=== PATIENT | female | born 1985 | race American Indian/Alaskan Native ===

== ENCOUNTER 2018-05-07 12:24 | Emergency (ER) | payer OTHER ==
--- NOTE | 2018-05-07 13:03 | Emergency Department Report ---
Blank Doc - Documentation Documentation: 33 y o female presents with work related injury, states head pain, states htch door fell on her head,yesterday states loc. upt CT head
[2018-05-07 14:08] LABS: HCG Qualitative,Urine Negative (Negative)
--- NOTE | 2018-05-07 14:41 | Cat Scan Report ---
CT HEAD WITHOUT CONTRAST: HISTORY: Head pain from injury. TECHNIQUE: Sequential 2.5mm CT images. COMPARISON: none. FINDINGS: Cerebral Parenchyma: Within normal limits. Cerebellum: Within normal limits. Brainstem: Within normal limits. Ventricles: Normal. Sella: Normal. Extra-axial spaces: Normal. Basal Cisterns: Normal. Intracranial Hemorrhage: None. Midline Shift: None. Calvarium: Normal. Sinuses: Normal. Mastoid Air Cells: Normal. Visualized Orbits: Normal. IMPRESSION: Cranial CT scan within normal limits.
[2018-05-07] MEDS ORDERED: TORADOL IM ONE (15:35)
--- NOTE | 2018-05-07 15:44 | Emergency Department Report ---
ED Head Trauma HPI - General Chief complaint: Head Injury Stated complaint: HEAD/NECK INJURY Time Seen by Provider: 05/07/18 12:59 Source: patient Mode of arrival: Ambulatory Limitations: No Limitations - History of Present Illness Initial comments: 33-year-old female with a past medical history diabetes the hospital for persistent headache since yesterday. Patient was climbing the ladder to her attic and got hit with the latch. No LOC reported. Latch also struck her left arm. She has continued to have persistent headache. She attempted to go to [place] yesterday but the wait was too long therefore she left prior to evaluation. She went to urgent care today and was advised to the hospital for CT scan and evaluation. She denies nausea, vomiting, blurred vision. Complains of left sided neck pain extending into shoulder and posterior thoracic as well as left arm pain at area of contusion. Patient denies of current weakness or numbness. Pain is 8/10 in intensity. - Related Data Previous Rx's Medication Instructions Recorded Last Taken Type Ibuprofen [Motrin] 800 mg PO Q8HR PRN #30 tablet 05/07/18 Unknown Rx Metaxalone [Skelaxin] 800 mg PO TID PRN #20 tablet 05/07/18 Unknown Rx traMADol [Ultram 50 MG tab] 50 mg PO Q6HR PRN #20 tablet 05/07/18 Unknown Rx Allergies/Adverse reactions: Allergies Allergy/AdvReac Type Severity Reaction Status Date / Time No Known Allergies Allergy Verified 05/07/18 12:57 ED Review of Systems ROS: Stated complaint: HEAD/NECK INJURY Other details as noted in HPI Comment: All other systems reviewed and negative ED Past Medical Hx - Past Medical History Hx Diabetes: Yes - Social History Smoking Status: Never Smoker Substance Use Type: None - Medications Home Medications: Home Medications Medication Instructions Recorded Confirmed Last Taken Type Ibuprofen [Motrin] 800 mg PO Q8HR PRN #30 tablet 05/07/18 Unknown Rx Metaxalone [Skelaxin] 800 mg PO TID PRN #20 tablet 05/07/18 Unknown Rx traMADol [Ultram 50 MG tab] 50 mg PO Q6HR PRN #20 tablet 05/07/18 Unknown Rx ED Physical Exam - General Limitations: No Limitations - Other Other exam information: General: No limitations, patient is alert in no acute distress Head exam: Atraumatic, normocephalic Eyes exam: Normal appearance, pupils equal reactive to light, extraocular movements intact ENT: Moist mucous membrane, normal oropharynx Neck exam: Normal inspection, full range of motion, no meningismus, no midline tenderness. Tenderness to the left trapezius extending to the upper thigh and shoulder Respiratory exam: Clear to auscultation bilateral, no wheezes, rales, crackles Cardiovascular: Normal rate and rhythm, normal heart sounds Abdomen: Soft, nondistended, and nontender, with normal bowel sounds, no rebound, or guarding Extremity: Full range of motion normal inspection no deformity, contusion noted to the left forearm with tenderness. Neurologic: Alert, oriented x3, cranial nerves intact, no motor or sensory deficit Psychiatric: normal affect, normal mood Skin: Warm, dry, intact ED Course Vital Signs 05/07/18 12:57 Temperature 98.1 F Pulse Rate 86 Respiratory 16 Rate Blood Pressure 152/95 O2 Sat by Pulse 100 Oximetry - Lab Data Lab Results 05/07/18 Range/Units 13:39 Urine HCG, Qual Negative (Negative) - Radiology Data Radiology results: report reviewed CT head: No acute findings - Medical Decision Making CT head unremarkable. Patient has a left trapezius muscle pain without midline tenderness. CT cervical spine ordered but declined. Patient has not had any weakness or neurologic deficit. Given Toradol in the ED. Discharged with follow-up. Blood pressure mildly elevated. Outpatient reevaluation advised. She plans on following back up with urgent care on Thursday - Differential Diagnosis concussion, contusion, muscle strain, fracture Critical Care Time: No Critical care attestation.: If time is entered above; I have spent that time in minutes in the direct care of this critically ill patient, excluding procedure time. ED Disposition Clinical Impression: Head injury, Headache, post-traumatic, acute, Strain of left trapezius muscle, Elevated blood pressure reading Disposition: - TO HOME OR SELFCARE Is pt being admited?: No Does the pt Need Aspirin: No Condition: Stable Instructions: Cervical Sprain (ED), Minor Head Injury (ED), How to Take a Blood Pressure (ED) Additional Instructions: Take the medication as prescribed. Follow up with your doctor or the clinic/doctor provided. Return if symptoms worsen as indicated by your discharge instructions Prescriptions: Ibuprofen [Motrin] 800 mg PO Q8HR PRN #30 tablet PRN Reason: Pain, Moderate (4-6) Metaxalone [Skelaxin] 800 mg PO TID PRN #20 tablet PRN Reason: Muscle Spasm traMADol [Ultram 50 MG tab] 50 mg PO Q6HR PRN #20 tablet PRN Reason: Pain Referrals: SWETA SHERIDAN [Primary Care Provider] - 3-5 Days Time of Disposition: 15:46
[2018-05-07 16:21] VITALS: BP 142/104
== END 2018-05-07 16:22 | disposition home or self-care (01) ==
LOC: ED 12:24
DX: S16.1XXA Strain of muscle, fascia and tendon at neck level, initial encounter (principal); S09.90XA Unspecified injury of head, initial encounter; E11.9 Type 2 diabetes mellitus without complications; R03.0 Elevated blood-pressure reading, without diagnosis of hypertension; G44.319 Acute post-traumatic headache, not intractable; W22.8XXA Striking against or struck by other objects, initial encounter; Y93.39 Activity, other involving climbing, rappelling and jumping off; Y92.89 Other specified places as the place of occurrence of the external cause; Y99.8 Other external cause status
CPT/HCPCS: 70450; 81025; 96372; 99284; J1885

== ENCOUNTER 2019-01-13 12:15 | Emergency (ER) | payer OTHER ==
--- NOTE | 2019-01-13 13:00 | Event Note ---
ED Screening Note Date of service: 01/13/19 Time: 12:53 ED Screening Note: Patient c/o headache with elevated BP without dx of HTN. Blurred vision and dizziness. Denies fever or chills. BP elevated in the past with strong family history. Pain lt side of head and radiating to neck and lt ear/ LMP 2 weeks ago. Nausea without vomiting. No head injury. GEN: BP elevated. non toxic Head: NL exam. Neck- NTTP . supple. Pain to Lt side with ROM Elevated blood pressure- no dx of HTN Headache This initial assessment/diagnostic orders/clinical plan/treatment(s) is/are subject to change based on patients health status, clinical progression and re- assessment by fellow clinical providers in the ED. Further treatment and workup at subsequent clinical providers discretion. Patient/guardian urged not to elope from the ED as their condition may be serious if not clinically assessed and managed. Initial orders include: CT head, cbc BMP
[2019-01-13 13:43] LABS: Basophils # (Auto) 0.1 K/mm3 (0.0-0.1); Basophils % (Auto) 1.8 % (0.0-1.8); Eosinophils % (Auto) 0.5 % (0.0-4.3); Hemoglobin 9.7 gm/dl (10.1-14.3); Lymphocytes # (Auto) 2.2 K/mm3 (1.2-5.4); Lymphocytes % (Auto) 28.6 % (13.4-35.0); Mean Corpuscular HGB Conc 30 % (30-34); Mean Corpuscular Volume 70 fl (79-97); Monocytes # (Auto) 0.5 K/mm3 (0.0-0.8); Platelet Count 378 K/mm3 (140-440); Red Blood Count 4.59 M/mm3 (3.65-5.03); Red Cell Distribution Width 17.3 % (13.2-15.2)
[2019-01-13 13:55] LABS: BUN/Creatinine Ratio 12; Blood Urea Nitrogen 6 mg/dL (7-17); Calcium 9.5 mg/dL (8.4-10.2); Hemolysis Index 4
[2019-01-13] MEDS ORDERED: KETOROLAC 30 MG/1 ML INJ IV ONE (14:48)
[2019-01-13] MEDS ORDERED: SODIUM CHLORIDE 0.9% 1000 ML 1,000 ML IV ONE (14:49)
--- NOTE | 2019-01-13 15:07 | Cat Scan Report ---
CT head/brain wo con INDICATION / CLINICAL INFORMATION: 33 years Female; New onset GILBERT with nausea, blurred vision. TECHNIQUE: Routine CT head without contrast. All CT scans at this location are performed using CT dos e reduction for ALARA by means of automated exposure control. COMPARISON: The study is compared to the previous CT of 05/07/2018. FINDINGS: BRAIN / INTRACRANIAL CONTENTS: The brain appears to demonstrate appropriate attenuation without signi ficant interval change from the previous CT. The ventricular system remains appropriate in size and c onfiguration. There is no clear CT evidence of acute intracranial hemorrhage or significant mass effe ct. ORBITS: No significant abnormality of visualized orbits. SINUSES / MASTOIDS: No significant abnormality the visualized paranasal sinuses or mastoid air cells. CRANIOCERVICAL JUNCTION: No significant abnormality. ADDITIONAL FINDINGS: None. IMPRESSION: 1. There is no CT evidence of acute intracranial process. Signer Name: Craig Vargas MD Signed: 01/13/2019 3:03 PM Workstation Name: [id number]
--- NOTE | 2019-01-13 15:13 | Emergency Department Report ---
<SWAPNA KNOWLES - Last Filed: 01/13/19 15:52> ED Headache HPI - General Chief Complaint: Headache Stated Complaint: HBP/MIGRAINE Time Seen by Provider: 01/13/19 12:53 - History of Present Illness Initial Comments: 33-year-old -[place] female patient complains of headache for 2 days and elevated blood pressure today. She admits to history of migraines and rates her some pain at 89/10 in severity. She admits to nausea and photophobia and states this feels like one of her migraines. She denies any head trauma, vision changes, numbness/tingling/also sensation, worse headache of her life/thun derclap headache, dizziness, or syncope. Patient states she tried ibuprofen 800 without success and decided to check her blood pressure and noticed it was elevated at 170/116. She denies ever being diagnosed with hypertension, however states her blood pressure has been elevated at her last few doctor's visits. She also states her mother and father have hypertension Allergies/Adverse Reactions: Allergies No Known Allergies Allergy (Verified 05/07/18 12:57) Home Medications: Ambulatory Orders Ibuprofen [Motrin] 800 mg PO Q8HR PRN #30 tablet 05/07/18 Metaxalone [Skelaxin] 800 mg PO TID PRN #20 tablet 05/07/18 traMADoL [Ultram 50 MG tab] 50 mg PO Q6HR PRN #20 tablet 05/07/18 ED Review of Systems Comment: All other systems reviewed and negative Eyes: as per HPI Neurological: as per HPI ED Past Medical Hx - Past Medical History Previous Medical History?: Yes Hx Diabetes: Yes - Surgical History Past Surgical History?: No - Social History Smoking Status: Never Smoker - Medications Home Medications: Home Medications Medication Instructions Recorded Confirmed Last Taken Type Ibuprofen [Motrin] 800 mg PO Q8HR PRN #30 tablet 05/07/18 Unknown Rx Metaxalone [Skelaxin] 800 mg PO TID PRN #20 tablet 05/07/18 Unknown Rx traMADoL [Ultram 50 MG tab] 50 mg PO Q6HR PRN #20 tablet 05/07/18 Unknown Rx ED Physical Exam - General Limitations: No Limitations General appearance: alert, in no apparent distress - Head Head exam: Present: atraumatic, normocephalic - Eye Eye exam: Present: normal appearance, PERRL, EOMI. Absent: scleral icterus - ENT ENT exam: Present: mucous membranes moist - Respiratory Respiratory exam: Present: normal lung sounds bilaterally. Absent: respiratory distress - Cardiovascular Cardiovascular Exam: Present: regular rate, normal rhythm. Absent: systolic murmur, diastolic murmur, rubs, gallop - GI/Abdominal GI/Abdominal exam: Present: soft. Absent: distended, tenderness - Extremities Exam Extremities exam: Present: normal inspection. Absent: calf tenderness (leg swelling/edema noted) - Neurological Exam Neurological exam: Present: alert, oriented X3, CN II-XII intact, normal gait. Absent: motor sensory deficit - Expanded Neurological Exam Expanded Speech: Present: fluid speech Cranial nerves: EOM's Intact: Normal, Gag Reflex: Normal, Tongue Deviation: Normal, Nystagmus: Normal, Facial Sensation: Normal, Facial Palsy with Forehead Movement: Normal, Facial Palsy without Forehead Movement: Normal Cerebellar function: Finger to Nose: Normal, Heel to Flores: Normal, Romberg: Normal Sensory exam: Upper Extremity Light Touch: Normal, Lower Extremity Light Touch: Normal Motor strength exam: RUE: 5, LUE: 5, RLE: 5, LLE: 5 - Psychiatric Psychiatric exam: Present: normal affect, normal mood - Skin Skin exam: Present: warm, dry, intact, normal color. Absent: rash ED Medical Decision Making - Lab Data Result diagrams: 01/13/19 13:06 01/13/19 13:06 Lab Results 01/13/19 01/13/19 01/13/19 Range/Units 13:06 13:06 13:06 WBC 7.5 (4.5-11.0) K/mm3 RBC 4.59 (3.65-5.03) M/mm3 Hgb 9.7 L (10.1-14.3) gm/dl Hct 32.0 (30.3-42.9) % MCV 70 L (79-97) fl MCH 21 L (28-32) pg MCHC 30 (30-34) % RDW 17.3 H (13.2-15.2) % Plt Count 378 (140-440) K/mm3 Lymph % (Auto) 28.6 (13.4-35.0) % Jackson % (Auto) 7.0 (0.0-7.3) % Eos % (Auto) 0.5 (0.0-4.3) % Baso % (Auto) 1.8 (0.0-1.8) % Lymph # 2.2 (1.2-5.4) K/mm3 Jackson # 0.5 (0.0-0.8) K/mm3 Eos # 0.0 (0.0-0.4) K/mm3 Baso # 0.1 (0.0-0.1) K/mm3 Seg Neutrophils % 62.1 (40.0-70.0) % Seg Neutrophils # 4.7 (1.8-7.7) K/mm3 Sodium 135 L (137-145) mmol/L Potassium 4.1 (3.6-5.0) mmol/L Chloride 100.7 (98-107) mmol/L Carbon Dioxide 18 L (22-30) mmol/L Anion Gap 20 mmol/L BUN 6 L (7-17) mg/dL Creatinine 0.5 L (0.7-1.2) mg/dL Estimated GFR > 60 ml/min BUN/Creatinine Ratio 12 % Glucose 94 (65-100) mg/dL Calcium 9.5 (8.4-10.2) mg/dL HCG, Qual Negative (Negative) - Radiology Data Radiology results: report reviewed CT head/brain wo con INDICATION / CLINICAL INFORMATION: 33 years Female; New onset GILBERT with nausea, blurred vision. TECHNIQUE: Routine CT head without contrast. All CT scans at this location are performed using CT dose reduction for ALARA by means of automated exposure control. COMPARISON: The study is compared to the previous CT of 05/07/2018. FINDINGS: BRAIN / INTRACRANIAL CONTENTS: The brain appears to demonstrate appropriate attenuation without significant interval change from the previous CT. The ventricular system remains appropriate in size and configuration. There is no clear CT evidence of acute intracranial hemorrhage or significant mass effect. ORBITS: No significant abnormality of visualized orbits. SINUSES / MASTOIDS: No significant abnormality the visualized paranasal sinuses or mastoid air cells. CRANIOCERVICAL JUNCTION: No significant abnormality. ADDITIONAL FINDINGS: None. IMPRESSION: 1. There is no CT evidence of acute intracranial process. ED Disposition Clinical Impression: Headache, Palpitation Disposition: - TO HOME OR SELFCARE Condition: Stable Instructions: Palpitations (ED), Acute Headache (ED) Referrals: PRIMARY CARE, [Primary Care Provider] - 3-5 Days <PAULINE CARPIO - Last Filed: 01/13/19 18:36> ED Review of Systems ROS: Stated complaint: HBP/MIGRAINE Other details as noted in HPI ED Course Vital Signs 01/13/19 01/13/19 01/13/19 12:50 15:20 15:50 Temperature 98.5 F Pulse Rate 108 H 99 H Respiratory 18 19 20 Rate Blood Pressure 169/105 Blood Pressure 152/101 [Left] O2 Sat by Pulse 100 100 Oximetry 01/13/19 01/13/19 01/13/19 16:20 16:28 16:30 Temperature Pulse Rate 100 H 98 H Respiratory 16 14 17 Rate Blood Pressure 156/101 Blood Pressure [Left] O2 Sat by Pulse 100 100 Oximetry 01/13/19 01/13/19 16:46 17:00 Temperature Pulse Rate 99 H 96 H Respiratory 19 17 Rate Blood Pressure 156/101 153/95 Blood Pressure [Left] O2 Sat by Pulse 100 100 Oximetry ED Medical Decision Making - Lab Data Result diagrams: 01/13/19 13:06 01/13/19 13:06 Critical care attestation.: If time is entered above; I have spent that time in minutes in the direct care of this critically ill patient, excluding procedure time. ED Disposition Is pt being admited?: No
[2019-01-13] MEDS ORDERED: diphenhydrAMINE 50 MG/ML VIAL IV ONE (15:48)
[2019-01-13] MEDS ORDERED: METOCLOPRAMIDE 10 MG/2 ML INJ IV ONE (15:48)
[2019-01-13] MEDS ORDERED: SUMAtriptan SUCCINATE 6 MG/0.5 ML INJ SUB-Q ONE (18:04)
[2019-01-13 18:38] VITALS: BP 130/89
== END 2019-01-13 18:40 | disposition home or self-care (01) ==
LOC: ED 12:15
DX: R51 Headache (principal); R00.2 Palpitations; R42 Dizziness and giddiness; E11.9 Type 2 diabetes mellitus without complications; Z79.899 Other long term (current) drug therapy
CPT/HCPCS: 36415; 70450; 80048; 84703; 85025; 96361; 96372; 96374; 96375; 99284; J1200; J1885; J2765; J7030; J3030